=== PATIENT | female | born 1950 | race Caucasian/White ===

== ENCOUNTER → 2016-11-16 | Outpatient (CLI) | payer OTHER, MEDICARE ==
[~2016-11-16] MED LIST: GADOBUTROL 10 ML VIAL IVP ONE
== END ==
LOC: FIMAGING 07:40
PROVIDERS: ATTEND Internal Medicine Hematology & Oncology
DX: N60.12 Diffuse cystic mastopathy of left breast (principal); Z98.890 Other specified postprocedural states; Z85.3 Personal history of malignant neoplasm of breast
CPT/HCPCS: 0159T; A9585; C8908; G0204

== ENCOUNTER → 2017-07-08 | Outpatient (CLI) | payer OTHER, MEDICARE | LOC: FIMAGING 11:35 | PROVIDERS: ATTEND Internal Medicine | DX: M43.16 Spondylolisthesis, lumbar region (principal); M48.061 Spinal stenosis, lumbar region without neurogenic claudication ==

== ENCOUNTER → 2017-11-15 | Outpatient (CLI) | payer OTHER, MEDICARE | LOC: FIMAGING 10:11 | PROVIDERS: ATTEND Internal Medicine Hematology & Oncology | DX: Z08 Encounter for follow-up examination after completed treatment for malignant neoplasm (principal); Z85.3 Personal history of malignant neoplasm of breast ==